=== PATIENT | male | born 1960 | race Caucasian/White ===

== ENCOUNTER 2018-03-10 20:05 | Observation (INO) | payer OTHER ==
[~2018-03-10] VITALS: Ht 172.7 cm; Wt 81.6 kg
[2018-03-10] MEDS ORDERED: LISINOPRIL40 MG (20:39)
[2018-03-10] MEDS ORDERED: HYDROCHLOROTH12.5 MG (20:39)
[2018-03-10] MEDS ORDERED: HYDROCHLOROTH12.5 M1 (20:39)
[2018-03-10] MEDS ORDERED: LISINOPRIL10 MG PO (20:39)
[2018-03-10 21:28] LABS: BASOPHILS # (AUTO) 0.1 (0.0-0.1); BASOPHILS % 0.5 % (0.0-1.0); EOSINOPHILS # (AUTO) 0.2 (0.0-0.4); EOSINOPHILS % 1.5 % (0.0-6.0); HEMATOCRIT 40.5 % (38.2-49.6); HEMOGLOBIN 15.1 g/dL (14.0-18.0); LYMPHOCYTES # (AUTO) 2.9 (1.0-3.2); LYMPHOCYTES % 18.8 % (18.0-39.1); MEAN CORPUSCULAR HEMOGLOBIN 32.6 pg (28-32); MEAN CORPUSCULAR HGB CONC 37.3 g/dL (31-35); MEAN CORPUSCULAR VOLUME 87.5 fL (81-99); MONOCYTES # (AUTO) 1.6 (0.2-0.8); MONOCYTES % 10.7 % (4.4-11.3); NEUTROPHILS # (AUTO) 10.5 (2.1-6.9); NEUTROPHILS % 68.2 % (38.7-80.0); PLATELET COUNT 301 x10e3/uL (140-360); RED BLOOD COUNT 4.63 x10e6/uL (4.3-5.7); RED CELL DISTRIBUTION WIDTH 13.8 % (11.7-14.4)
[2018-03-10 21:49] LABS: ALBUMIN/GLOBULIN RATIO 1.3 (0.8-2.0); ANION GAP 17.6 mmol/L (8-16); CALCIUM 9.8 mg/dL (8.4-10.2); CREATININE, SERUM 1.45 mg/dL (0.72-1.25); POTASSIUM 3.6 mmol/L (3.5-5.1)
[2018-03-10 22:13] LABS: BILIRUBIN,URINE NEGATIVE (NEGATIVE); CLARITY,URINE CLEAR (CLEAR); COLOR,URINE YELLOW (YELLOW); KETONES,URINE NEGATIVE (NEGATIVE); LEUKOCYTE ESTERASE ,URINE NEGATIVE (NEGATIVE); NITRITE,URINE NEGATIVE (NEGATIVE); PROTEIN,URINE DIPSTICK NEGATIVE (NEGATIVE); URINE UROBILINOGEN 0.2 mg/dL (0.2 - 1)
[2018-03-10 22:18] LABS: RBC,URINE 0-5 /HPF (0-5); WBC,URINE (MAN) 0-5 /HPF (0-5)
[2018-03-10 22:19] LABS: BACTERIA,URINE RARE /HPF
[2018-03-10] MEDS ORDERED: SODIUM CHLORIDE 0.9% 250ML 250 ML ONE (22:58)
[2018-03-10] MEDS ORDERED: SODIUM CHLORIDE 0.9% 250ML 250 ML IV ONE (23:00)
[2018-03-10] MEDS ORDERED: SODIUM CHLORIDE 0.9% 50ML 50 ML ONE (23:36)
[2018-03-10] MEDS ORDERED: IOPAMIDOL 370 MG/ML 200 ML INFUS..BTL INJ ONE (23:36)
[2018-03-11] VITALS (9 sets, daily range): BP systolic 90–119; BP diastolic 52–70
[2018-03-11] MEDS ORDERED: SODIUM CHLORIDE 0.9% 250ML 250 ML IV ONE
--- NOTE | 2018-03-11 00:33 | Diagnostic Imaging Report ---
EXAM: CT Abdomen and Pelvis WITH contrast INDICATION: Abdominal pain. Nausea, diarrhea COMPARISON: None. TECHNIQUE: Abdomen and pelvis were scanned utilizing a multidetector helical scanner from the lung base to the pubic symphysis after administration of IV contrast. Coronal and sagittal reformations were obtained. Routine protocol was performed. Scan was performed during portal venous phase. IV CONTRAST: 100 mL of Isovue-370 ORAL CONTRAST: Water COMPLICATIONS: None RADIATION DOSE: Total DLP: 349.7 mGy*cm Estimated effective dose: (DLP x 0.015 x size factor) mSv Dose modulation, iterative reconstruction, and/or weight based adjustment of the mA/kV was utilized to reduce the radiation dose to as low as reasonably achievable. FINDINGS: LINES and TUBES: None. LOWER THORAX: Unremarkable HEPATOBILIARY: No focal hepatic lesions. No biliary ductal dilation. GALLBLADDER: Absent SPLEEN: No splenomegaly. PANCREAS: No focal masses or ductal dilatation. ADRENALS: No adrenal nodules KIDNEYS/URETERS: Kidneys enhance symmetrically. No hydronephrosis. No cystic or solid mass lesions. No stones. GI TRACT: No abnormal distention or evidence of bowel obstruction. Redundant sigmoid colon with mid sigmoid colonic wall thickening with peridiverticular stranding compatible with acute uncomplicated diverticulitis. No abscess or free air. Appendix is not clearly identified. There is however no fat stranding or adenopathy in the right lower quadrant to suggest appendicitis. PELVIC ORGANS/BLADDER: Unremarkable. LYMPH NODES: No lymphadenopathy. VESSELS: Unremarkable. PERITONEUM / RETROPERITONEUM: No free air or fluid. BONES: There are degenerative changes in the lumbar spine. SOFT TISSUES: Unremarkable. IMPRESSION: Acute uncomplicated sigmoid colonic diverticulitis. Signed by: DR. Maldonado Nicholas MD on 03/11/2018 12:30 AM
[2018-03-11] MEDS ORDERED: CIPROFLOXACIN 400 MG/D5W 200ML 200 ML IV STA (00:44)
[2018-03-11] MEDS ORDERED: METRONIDAZOLE 500MG/NS 100ML 100 ML IV STA (00:44)
[2018-03-11] MEDS: SODIUM CHLORIDE 0.9% 1000ML 1,000 ML IV SCH ×5 (01:01→22:45)
--- OUTSIDE RECORDS SUMMARY | 2018-03-11 01:04 | XMS REPORT ---
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 Allergies, Adverse Reactions, Alerts This patient has no known allergies or adverse reactions. Medications This patient has no known medications. Results Test Description Test Time Test Comments Text Results Atomic Results Result Comments CT ABDOMEN/PELVIS W 2018-03-11 00:11:00 [place] [address] Patient Name: MARY ROMERO MR #: [id number] : 1960 Age/Sex: 57/M Req #: [id number] Adm Physician: Ordered by: SHAHRIAR CURIEL MD Report #: [id number] Location: ER Room/Bed: Procedure: [id number] CT/CT ABDOMEN/PELVIS W Exam Date: 03/10/18 Exam Time: 2345 REPORT STATUS: Signed EXAM: CT Abdomen and Pelvis WITH contrast INDICAT ION: Abdominal pain. Nausea, diarrhea COMPARISON: None. TECHNIQUE: Abdomen and pelvis were scanned utilizing a multidetector helical scanner from the lung base to the pubic symphysis after administration of IV contrast. Coronal and sagittal reformations were obtained. Routine protocol was performed. Scan was performed during portal venous phase. IV CONTRAST: 100 mL of Isovue-370 ORAL CONTRAST: Water COMPLICATIONS: None RADIATION DOSE: Total DLP: 349.7 mGy*cm Estimated effective dose: (DLP x 0.015 x size factor) mSv Dose modulation, iterative reconstruction, and/or weight based adjustment of the mA/kV was utilized to reduce the radiation dose to as low as reasonably achievable. FINDINGS: LINES and TUBES: None. LOWER THORAX: Unremarkable HEPATOBILIARY: No focal hepatic lesions. No biliary ductal dilation. GALLBLADDER: Absent SPLEEN: No splenomegaly. PANCREAS: No focal masses or ductal dilatation. ADRENALS: No adrenal nodules KIDNEYS/URETERS: Kidneys enhance symmetrically. No hydronephrosis. No cystic or solid mass lesions. No stones. GI TRACT: No abnormal distention or evidence of bowel obstruction. Redundant sigmoid colon with mid sigmoid colonic wall thickening with peridiverticular stranding compatible with acute uncomplicated diverticulitis. No abscess or free air. Appendix is not clearly identified. There is however no fat stranding or adenopathy in the right lower quadrant to suggest appendicitis. PELVIC ORGANS/BLADDER: Unremarkable. LYMPH NODES: No lymphadenopathy. VESSELS: Unremarkable. PERITONEUM / RETROPERITONEUM: No free air or fluid. BONES: There are degenerative changes in the lumbar spine. SOFT TISSUES: Unremarkable. IMPRESSION: Acute uncomplicated sigmoid colonic diverticulitis. Signed by: DR. Maldonado Villalobos MD on 03/11/2018 12:30 AM Dictated By: MALDONADO VILLALOBOS MD Transcribed By: JONATHAN on 03/11/1829 COPY TO: SHAHRIAR CURIEL MD
[2018-03-11] MEDS ORDERED: METRONIDAZOLE 500MG/NS 100ML 100 ML IV SCH (08:00)
[2018-03-11] MEDS: PANTOPRAZOLE 40 MG 10ML VIAL IV SCH (10:30)
--- NOTE | 2018-03-11 10:30 | NUR ---
PT REPORTS HE TOOK HIS HOME MEDICATION AT 1015 BECAUSE HE TAKES IT EVERYDAY AT HOME, EDUCATED THAT MD HAS NOT RENEWED HOME MEDICATIONS AND THAT HE IS STILL NPO AND THAT HIS BP WAS LOW THIS AM, PT VERBALIZED UNDERSTANDING THAT HE IS NOT TO TAKE ANY MORE HOME MEDICATIONS UNTIL CLEARED BY MD, PT REQUESTING NOT TO HAVE ON SCD'S AT THIS TIME DUE TO GETTING UP FREQUENTLY, EDUCATED ON IMPORTANCE OF USING, PT VERBALIZED UNDERSTANDING, CALL LIGHT WITHIN REACH
[2018-03-11] MEDS: LEVOFLOXACIN 500MG/D5W 100ML 100 ML IV SCH (12:00)
[2018-03-11] MEDS: METRONIDAZOLE 500MG/NS 100ML 100 ML IV SCH (18:05)
--- NOTE | 2018-03-11 19:05 | NUR ---
Patient visited in room during nursing rounds. Patient alert and oriented x3. No c/o pain or discomfort. On IVF (NS@125ml/hr) infusing. Pt is NPO per MD order. Call morris within reach. Will monitor closely.
--- NOTE | 2018-03-11 20:48 | History and Physical ---
PRIMARY CARE PHYSICIAN: Lives in [place]. CHIEF COMPLAINT: Abdominal pain. HISTORY OF PRESENT ILLNESS: This is a 57-year-old man with a history of chronic diarrhea, now developing low abdominal pain with diarrhea. Patient does have chronic diarrhea, but he really presented because of the abdominal pain, admitted to the hospital, found to have acute diverticulitis. He is admitted for further evaluation and management. Patient has never had a colonoscopy. PAST MEDICAL HISTORY: Hypertension, chronic diarrhea. PAST SURGICAL HISTORY: Cholecystectomy in 2012. ALLERGIES: PER ELECTRONIC MEDICAL RECORD. FAMILY/SOCIAL HISTORY: Patient is . Has occasional alcohol. He smokes cigars from time to time. 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 MEDICATIONS: Per electronic medical record. REVIEW OF SYSTEMS: Denies any fever, chills, sweats, nausea, vomiting. Denies any headache, back pain, skin rash, leg pain. PHYSICAL EXAMINATION: VITAL SIGNS: Have been reviewed. GENERAL APPEARANCE: Tired-appearing man resting in bed. HEENT: Anicteric. CARDIOVASCULAR: Normal S1 and S2. LUNGS: Moderate breath sounds. ABDOMEN: Soft, nondistended. He has tenderness in lower abdomen. No rebound. EXTREMITIES: No edema or calf tenderness. NEUROLOGICAL: Alert and oriented x3. Moving all extremities. SKIN: Dry. PSYCHIATRIC: Normal affect. LABS: Reviewed. MEDICATIONS: Reviewed. ASSESSMENT: This is a 57-year-old man: 1. Sigmoid diverticulitis, which is acute. 2. Acute kidney injury secondary to acute tubular necrosis. 3. Hypertension. 4. Overweight state. Body mass index is 27.4. PLAN: 1. NPO status. 2. IV fluids. 3. Add Flagyl and Levaquin. 4. Follow up renal function. 5. Keep patient n.p.o. today and transition to clear liquid diet tomorrow. 6. I have consulted patient on need for colonoscopy in 6 to 8 weeks. 7. Prophylaxis. SCD. 8. Disposition. Follow up labs in the morning. Job#: [id number]
[2018-03-12] VITALS (7 sets, daily range): BP systolic 97–118; BP diastolic 56–73
[2018-03-12] MEDS: METRONIDAZOLE 500MG/NS 100ML 100 ML IV SCH ×3 (02:16→17:24)
[2018-03-12] MEDS: LEVOFLOXACIN 500MG/D5W 100ML 100 ML IV SCH (08:55)
[2018-03-12] MEDS: PANTOPRAZOLE 40 MG 10ML VIAL IV SCH (08:55)
[2018-03-12] MEDS: SODIUM CHLORIDE 0.9% 1000ML 1,000 ML IV SCH ×2 (08:55→17:24)
--- NOTE | 2018-03-12 10:19 | NUR ---
Call to attending by nurse manager books and orders in place to start clear liquids
--- NOTE | 2018-03-12 11:28 | NUR ---
Patient tolerated clear liquid diet well this morning and no c/o N/V and pains well managed.
--- NOTE | 2018-03-12 14:45 | NUR ---
Visit made by the Spiritual Care Department Pastoral Visitor, Ghazala Ramos. PV provided pastoral presence, hospitality, and supportive listening. Pastoral Visitor informed pt/family of the scope of Benefits Manager Services and availability. CHANDAN CASTILLO Commercial Loan Specialist Spiritual Care Department O: [phone] Pager: [phone] ([phone] number calling from)
--- NOTE | 2018-03-12 17:39 | NUR ---
Patient started on clear liquid diet and tolerated lunch and dinner well, no c/o abdl pain, no N/V ambulating hallways, will monitor.
--- NOTE | 2018-03-12 19:30 | NUR ---
ASSESSMENT DONE.NO PAIN VOICED.NO RESP.DISTRESS.BED LOCKED AND IN LOWEST POSITION.PHONE AND CALL LIGHT WITHIN REACH.INSTRUCTED TO CALL FOR ASSISTANCE NEEDED.
--- NOTE | 2018-03-12 21:30 | NUR ---
PT TOOK SHOWER.STABLE CONDITION.RESTING IN THE BED.
[2018-03-13] VITALS (9 sets, daily range): BP systolic 118–146; BP diastolic 60–94
[2018-03-13] MEDS: SODIUM CHLORIDE 0.9% 1000ML 1,000 ML IV SCH ×4 (00:25→21:50)
[2018-03-13] MEDS: METRONIDAZOLE 500MG/NS 100ML 100 ML IV SCH ×3 (01:13→17:13)
--- NOTE | 2018-03-13 06:50 | NUR ---
REPORT GIVEN TO THE ONCOMING RN.WALKING ROUNDS DONE.STABLE CONDITION.
--- NOTE | 2018-03-13 07:31 | NUR ---
Rcvd patient in report this am. Patient is asleep in bed at this time. NO s/s of distress noted
--- NOTE | 2018-03-13 07:37 | NUR ---
IM- Progress Note DOS 03/12/18 at 7am O/N; a little better; REVIEW OF SYSTEMS: Denies any fever, chills, sweats, nausea, vomiting. Denies any headache, back pain, skin rash, leg pain. PHYSICAL EXAMINATION: VITAL SIGNS: Have been reviewed. GENERAL APPEARANCE: Tired-appearing man resting in bed. HEENT: Anicteric. CARDIOVASCULAR: Normal S1 and S2. LUNGS: Moderate breath sounds. ABDOMEN: Soft, nondistended. He has tenderness in lower abdomen. No rebound. EXTREMITIES: No edema or calf tenderness. NEUROLOGICAL: Alert and oriented x3. Moving all extremities. SKIN: Dry. PSYCHIATRIC: Normal affect. LABS: Reviewed. MEDICATIONS: Reviewed. ASSESSMENT: This is a 57-year-old man: 1. Sigmoid diverticulitis, which is acute. 2. Acute kidney injury secondary to acute tubular necrosis. 3. Hypertension. 4. Overweight state. Body mass index is 27.4. PLAN: 1. NPO status. 2. IV fluids. 3. Add Flagyl and Levaquin. 4. Follow up renal function. 5. Keep patient n.p.o. today and transition to clear liquid diet tomorrow. 6. I have consulted patient on need for colonoscopy in 6 to 8 weeks. 7. Prophylaxis. SCD. 8. Disposition. Follow up labs in the morning. 03/12/18 advance to [facility]. Stanley Mckay MD, PhD.
--- NOTE | 2018-03-13 07:37 | NUR ---
IM- Progress Note O/N; a little better; REVIEW OF SYSTEMS: Denies any fever, chills, sweats, nausea, vomiting. Denies any headache, back pain, skin rash, leg pain. PHYSICAL EXAMINATION: VITAL SIGNS: Have been reviewed. GENERAL APPEARANCE: Tired-appearing man resting in bed. HEENT: Anicteric. CARDIOVASCULAR: Normal S1 and S2. LUNGS: Moderate breath sounds. ABDOMEN: Soft, nondistended. He has tenderness in lower abdomen. No rebound. EXTREMITIES: No edema or calf tenderness. NEUROLOGICAL: Alert and oriented x3. Moving all extremities. SKIN: Dry. PSYCHIATRIC: Normal affect. LABS: Reviewed. MEDICATIONS: Reviewed. ASSESSMENT: This is a 57-year-old man: 1. Sigmoid diverticulitis, which is acute. 2. Acute kidney injury secondary to acute tubular necrosis. 3. Hypertension. 4. Overweight state. Body mass index is 27.4. PLAN: 1. NPO status. 2. IV fluids. 3. Add Flagyl and Levaquin. 4. Follow up renal function. 5. Keep patient n.p.o. today and transition to clear liquid diet tomorrow. 6. I have consulted patient on need for colonoscopy in 6 to 8 weeks. 7. Prophylaxis. SCD. 8. Disposition. Follow up labs in the morning. 03/12/18 advance to [facility]. 03/13 check labs; advance diet as gage Mckay MD, PhD.
[2018-03-13 08:23] LABS: BASOPHILS # (AUTO) 0.1 (0.0-0.1); EOSINOPHILS # (AUTO) 0.2 (0.0-0.4); EOSINOPHILS % 3.2 % (0.0-6.0); HEMATOCRIT 38.8 % (38.2-49.6); HEMOGLOBIN 13.2 g/dL (14.0-18.0); LYMPHOCYTES # (AUTO) 2.1 (1.0-3.2); LYMPHOCYTES % 30.5 % (18.0-39.1); MEAN CORPUSCULAR HEMOGLOBIN 30.5 pg (28-32); MEAN CORPUSCULAR VOLUME 89.6 fL (81-99); MONOCYTES # (AUTO) 0.6 (0.2-0.8); MONOCYTES % 8.6 % (4.4-11.3); NEUTROPHILS # (AUTO) 3.9 (2.1-6.9); NEUTROPHILS % 56.4 % (38.7-80.0); PLATELET COUNT 294 x10e3/uL (140-360); RED BLOOD COUNT 4.33 x10e6/uL (4.3-5.7); RED CELL DISTRIBUTION WIDTH 13.1 % (11.7-14.4)
[2018-03-13] MEDS: PANTOPRAZOLE 40 MG 10ML VIAL IV SCH (08:35)
[2018-03-13] MEDS: LEVOFLOXACIN 500MG/D5W 100ML 100 ML IV SCH (08:35)
[2018-03-13 08:36] LABS: ANION GAP 11.8 mmol/L (8-16); BLOOD UREA NITROGEN 10 mg/dL (7-26); BUN/CREATININE RATIO 11 (6-25); CALCIUM 8.8 mg/dL (8.4-10.2); CARBON DIOXIDE 23 mmol/L (22-29); CHLORIDE 108 mmol/L (98-107); CREATININE, SERUM 0.94 mg/dL (0.72-1.25); EST GLOMERULAR FILTRATION RATE > 60 ML/MIN (60-); GLUCOSE 93 mg/dL (74-118); MAGNESIUM 2.1 MG/DL (1.3-2.1); POTASSIUM 3.8 mmol/L (3.5-5.1); SODIUM 139 mmol/L (136-145)
--- NOTE | 2018-03-13 09:39 | NUR ---
Patient stated he had some pain after eating his full liquid diet. No nausea noted. Will continue to keep him at a full liquid diet and advance for dinner
--- NOTE | 2018-03-13 14:05 | NUR ---
Nutrition Screen Note RD Recommendation for Physician: -Rec advancing to GI soft diet as tolerated -Encourage PO and hydration Plan of Care: RD following, monitoring for tolerance and adequacy, diet education Nutrition reason for involvement: RN consult diet education Primary Diagnose(s): 1. Sigmoid diverticulitis, which is acute. 2. Acute kidney injury secondary to acute tubular necrosis. PMH: chronic diarrhea, HTN Ht: 68in Wt: 180lb BMI: 27.4kg/m2 IBW: 154lb RD Assessment: (03/13) Chart reviewed. Labs and meds reviewed. 57yo M, who is admitted for abdominal pain. Visited pt in the room. Pt reports tolerating full liquid without any GI complains. LBM 03/13. No chewing or swallowing difficulty noted. 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 RD provided diet education as consulted. Will continue to monitor and follow. Current Diet: full liquid diet Malnutrition Evaluation (03/13/2018) The patient does not meet criteria for a specified degree of malnutrition at this time. Will re-evaluate at follow-up as appropriate. Diet Education Needs Assessment: Diet education indicated, pt is agreeable with plan. Learner(s): pt Time spent: 20minutes Barriers: No barriers identified. Cultural/Language Modifications: No cultural/language modifications noted. Pt speaks French. Readiness: Pt eager to learn. Method: Handout, explanation Topics: GI soft diet Understanding/Compliance: Expect good understanding/compliance from pt. All questions have been answered. Nutrition Care Level: low Signed: Alison Vaughn, MS, RD, LD
--- NOTE | 2018-03-13 19:15 | NUR ---
REPORT TAKEN FROM AM RN.WALKING ROUNDS DONE.STABLE CONDITION.
--- NOTE | 2018-03-13 20:20 | NUR ---
ASSESSMENT DONE.NO RESP.DISTRESS.NO PAIN VOICED.BED LOCKED AND IN LOWEST POSITION.PHONE AND CALL LIGHT WITHIN REACH.INSTRUCTED TO CALL FOR ASSISTANCE NEEDED.
[2018-03-13] MEDS ORDERED: ACETAMINOPHEN 325 MG TAB PO PRN (21:45)
[2018-03-14] VITALS: BP 126/88
[2018-03-14] MEDS: METRONIDAZOLE 500MG/NS 100ML 100 ML IV SCH ×2 (01:54→09:28)
[2018-03-14 04:00] VITALS: BP 111/67
--- NOTE | 2018-03-14 06:51 | NUR ---
Report given to the oncoming rn.walking rounds done.stable condition.
--- NOTE | 2018-03-14 07:13 | NUR ---
Rcvd patient in report this am. Patient is asleep in bed at this time. NO s/s of distress noted
[2018-03-14] MEDS ORDERED: ZOFRAN4 MG PO (07:46)
[2018-03-14] MEDS ORDERED: SENNOSIDES8.6 MG PO (07:46)
[2018-03-14] MEDS ORDERED: LEVAQUIN500 MG PO (07:46)
[2018-03-14] MEDS ORDERED: FLAGYL500 MG PO (07:46)
[2018-03-14 07:52] VITALS: BP 131/78
--- NOTE | 2018-03-14 07:52 | NUR ---
DIscharge Summary Principal Dx: ASSESSMENT: This is a 57-year-old man: 1. Sigmoid diverticulitis, which is acute. 2. Acute kidney injury secondary to acute tubular necrosis. 3. Hypertension. 4. Overweight state. Body mass index is 27.4. Secondary Dx: 1.HTN cc and HPI: refer to H&P Hospital course: ASSESSMENT: This is a 57-year-old man: 1. Sigmoid diverticulitis, which is acute. 2. Acute kidney injury secondary to acute tubular necrosis. 3. Hypertension. 4. Overweight state. Body mass index is 27.4. PLAN: 1. NPO status. 2. IV fluids. 3. Add Flagyl and Levaquin. 4. Follow up renal function. 5. Keep patient n.p.o. today and transition to clear liquid diet tomorrow. 6. I have consulted patient on need for colonoscopy in 6 to 8 weeks. 7. Prophylaxis. SCD. 8. Disposition. Follow up labs in the morning. 03/12/18 advance to [facility]. 03/13 check labs; advance diet as gage 03/14 [place] resolved; leukocytosis resolved; tolerating diet; d/c time>35mins d/c home F/U PCP 1 week and GI for colonoscopy in 6-8 weeks COndition: stable; D/C meds; flagyl and levaquin; Stanley Mckay MD, PhD.
[2018-03-14] MEDS: PANTOPRAZOLE 40 MG 10ML VIAL IV SCH (08:22)
[2018-03-14] MEDS: LEVOFLOXACIN 500MG/D5W 100ML 100 ML IV SCH (08:22)
[2018-03-14] MEDS: SODIUM CHLORIDE 0.9% 1000ML 1,000 ML IV SCH (08:44)
--- NOTE | 2018-03-14 10:52 | NUR ---
Iv removed at this time. Pressure dressing applied.
--- NOTE | 2018-03-14 11:18 | NUR ---
patient discharged from facility to home. Patient to fly back home to [place]. Work transport picked patient up. Reviewed discharge instructions, follow up appts, and RX's given. No s/s of distress noted. IV was removed. Tip intact. Paperwork faxed to Dr. de leon for work purposes
== END 2018-03-14 11:18 | disposition home or self-care (01) ==
LOC: ER 20:05 → ERHOLD 03-11 00:44 → MED/SURG 03-11 01:31
PROVIDERS: ADMIT Internal Medicine; ATTEND Internal Medicine
DX: K57.32 Diverticulitis of large intestine without perforation or abscess without bleeding (principal); I10 Essential (primary) hypertension; K52.9 Noninfective gastroenteritis and colitis, unspecified; N17.0 Acute kidney failure with tubular necrosis; E66.3 Overweight; Z68.27 Body mass index [BMI] 27.0-27.9, adult
CPT/HCPCS: 36415 ×2; 74177; 80048; 80053; 81001; 82150; 83690; 83735; 85025 ×2; 93005; 99284; C9113 ×4; G0378 ×4; J0744; J1956 ×4; J7030 ×3; J7050; Q9967

== ENCOUNTER 2020-04-07 11:02 | Emergency (ER) | payer OTHER ==
[~2020-04-07] VITALS: Ht 172.7 cm; Wt 81.6 kg
[~2020-04-07 11:02] MED LIST: FLAGYL500 MG PO; HYDROCHLOROTH12.5 M1; HYDROCHLOROTH12.5 MG; LEVAQUIN500 MG PO; LISINOPRIL10 MG PO; LISINOPRIL40 MG; SENNOSIDES8.6 MG PO; ZOFRAN4 MG PO
[2020-04-07] MEDS ORDERED: KETOROLAC TROMETHAMINE 30 MG/ML VIAL IV STA (11:30)
[2020-04-07] MEDS ORDERED: CIPROFLOXACIN 400 MG/D5W 200ML 200 ML IV STA (11:30)
[2020-04-07] MEDS ORDERED: SODIUM CHLORIDE FLUSH 10 ML SYR INJ PRN (11:30)
[2020-04-07] MEDS ORDERED: SODIUM CHLORIDE 0.9% 1000ML 1,000 ML IV STA (11:30)
[2020-04-07] MEDS ORDERED: SODIUM CHLORIDE 0.9% 50ML 50 ML ONE (11:45)
[2020-04-07] MEDS ORDERED: DIATRIZOATE MEGL/DIATRIZOA SOD 30 ML BTL PO ONE (11:46)
[2020-04-07] MEDS ORDERED: IOPAMIDOL 370 MG/ML 200 ML INFUS..BTL INJ ONE (11:46)
[2020-04-07] MEDS ORDERED: ONDANSETRON HCL INJ 2MG/ML 2ML 2 MG/ML VIAL ONE (11:47)
[2020-04-07] MEDS ORDERED: METRONIDAZOLE 500MG/NS 100ML 100 ML IV ONE ×2 (12:00→12:24)
[2020-04-07] MEDS ORDERED: METHYLPREDNISOLONE SOD SUCC 125 MG/2ML VIAL IV ONE (12:00)
[2020-04-07] MEDS ORDERED: METHYLPREDNISOLONE SOD SUCC 125 MG/2ML VIAL ONE (12:24)
[2020-04-07] MEDS ORDERED: CIPRO500 MG PO (14:39)
[2020-04-07] MEDS ORDERED: PREDNISONE20 MG PO (14:39)
[2020-04-07] MEDS ORDERED: ONDANSETRON ODT4 MG PO (14:39)
[2020-04-07] MEDS ORDERED: METRONIDAZOLE500 MG PO (14:39)
== END 2020-04-07 14:51 | disposition home or self-care (01) ==
LOC: FSED 11:31
DX: R10.30 Lower abdominal pain, unspecified (principal); K57.32 Diverticulitis of large intestine without perforation or abscess without bleeding; E86.0 Dehydration; I10 Essential (primary) hypertension; F41.9 Anxiety disorder, unspecified; M54.9 Dorsalgia, unspecified; G89.29 Other chronic pain
CPT/HCPCS: 74177; 80048; 81003; 85025; 99284; J0744; J1885; J2405; J2930; J7030; Q9967